=== PATIENT | female | born 1965 | race Caucasian/White ===

== ENCOUNTER → 2016-06-24 | Outpatient (CLI) | payer BC | LOC: RAD 05:17 | DX: Z12.31 Encounter for screening mammogram for malignant neoplasm of breast (principal) ==

== ENCOUNTER → 2017-07-10 | Outpatient (CLI) | payer BC | LOC: RAD 04:13 | DX: Z12.31 Encounter for screening mammogram for malignant neoplasm of breast (principal) ==